=== PATIENT | male | born 1945 | race Caucasian/White ===

== ENCOUNTER 2020-06-10 14:21 | Inpatient (IN) | payer MEDICARE, OTHER ==
[~2020-06-10] VITALS: Ht 165.1 cm; Wt 108.9 kg
--- NOTE | 2020-06-10 14:35 | NUR ---
CHEST PAIN, BB FRIEND TO ER, PRESSURE LIKE 8/10, RADIATES TO THE LEFT ARM; C/O EPIGASTRIC PAIN WELL ON EXAM, OBESE. PATIENT A/OX4, BREATHING EVEN AND UNLABORED, NO SOB NOTED.
[2020-06-10 14:44] LABS: BASOPHILS # (AUTO) 0.1 /CMM (0.0-0.2); EOSINOPHILS % (AUTO) 1.4 % (0.0-6.0); HEMATOCRIT 40 % (39-51); HEMOGLOBIN 12.7 g/dL (13.5-17.5); LYMPHOCYTES # (AUTO) 1.3 /CMM (0.8-4.8); LYMPHOCYTES % (AUTO) 23.5 % (20.0-44.0); MEAN CORPUSCULAR HGB CONC 32 g/dl (31.0-36.0); MEAN CORPUSCULAR VOLUME 82 fL (80-96); MONOCYTES # (AUTO) 0.4 /CMM (0.1-1.30); MONOCYTES % (AUTO) 6.9 % (2.0-12.0); NEUTROPHILS # (AUTO) 3.6 /CMM (1.8-8.9); NEUTROPHILS % (AUTO) 67.2 % (43.0-81.0); PLATELET COUNT (AUTO) 95 /CMM (150-450); RED BLOOD CELL COUNT(AUTO) 4.88 MIL/uL (4.5-6.0); WHITE BLOOD COUNT (AUTO) 5.4 K/uL (4.3-11.0)
[2020-06-10 14:57] LABS: CALCIUM, SERUM 8.6 mg/dL (8.5-10.1); CARBON DIOXIDE 25 mmol/L (21-32); CHLORIDE 101 mmol/L (98-107); CREATININE 1.3 mg/dL (0.6-1.3); GLUCOSE 141 mg/dL (74-106); POTASSIUM 4.2 mmol/L (3.5-5.1); SODIUM SERUM 137 mmol/L (136-145); UREA NITROGEN, BLOOD 22 mg/dL (7-18)
[2020-06-10] MEDS ORDERED: NITROGLYCERIN 0.4 MG/TAB BOTTLE SL ONE (15:00)
[2020-06-10] MEDS ORDERED: ASPIRIN 325 MG TABLET PO ONE (15:00)
[2020-06-10] MEDS ORDERED: ASPIRIN 325 MG TABLET ONE (15:01)
[2020-06-10] MEDS ORDERED: NITROGLYCERIN 0.4 MG/TAB BOTTLE ONE (15:01)
[2020-06-10 15:48] LABS: EOSINOPHILS % (MANUAL) 2 % (0-4); LYMPHOCYTES % (MANUAL) 10 % (16-48); MONOCYTES % (MANUAL) 13 % (0-11.0); NEUTROPHILS % (MANUAL) 75 (42-76)
[2020-06-10] MEDS ORDERED: MAGN500C16 PO (15:57)
[2020-06-10] MEDS ORDERED: METF-867 PO (15:57)
[2020-06-10] MEDS ORDERED: SEMA0.25 SQ (15:57)
[2020-06-10] MEDS ORDERED: DOXA4TAB19 PO (15:57)
[2020-06-10] MEDS ORDERED: SUCR1ORA4 PO (15:57)
[2020-06-10] MEDS ORDERED: NEBI10TA2 PO (15:57)
[2020-06-10] MEDS ORDERED: AZIL40TA PO (15:57)
[2020-06-10] MEDS ORDERED: SITA100T PO (15:57)
--- NOTE | 2020-06-10 16:00 | NUR ---
PATIENT LAUGHING AND TALKING TO HIS FRIEND. NO DISTRESS NOTED. DENIES CHEST PAIN.
[2020-06-10] MEDS ORDERED: Z GUARD REMEDY 2 OZ OINT TP PRN (16:30)
[2020-06-10] MEDS ORDERED: ACETAMINOPHEN 325 MG TABLET PO PRN (16:30)
[2020-06-10] MEDS ORDERED: *INSULIN REGULAR(HUMULIN R)HUM 100 UNIT/ML VIAL SQ PRN (16:30)
[2020-06-10] MEDS ORDERED: MAGNESIUM HYDROXIDE 30 ML UDC PO PRN (16:30)
[2020-06-10] MEDS ORDERED: MAG HYDROX/AL HYDROX/SIMETH 30 ML UDC PO PRN (16:30)
[2020-06-10] MEDS ORDERED: ZOLPIDEM TARTRATE 5 MG TABLET PO PRN (16:30)
[2020-06-10] MEDS ORDERED: ONDANSETRON HCL/PF 4 MG/2 ML VIAL IVP PRN (16:30)
[2020-06-10] MEDS ORDERED: DEXTROSE 50%-WATER 50 ML DISP.SYRIN IV PRN (16:30)
[2020-06-10] MEDS ORDERED: INSULIN REGULAR, HUMAN 100 UNIT/ML 3 ML VIAL SQ PRN (16:30)
[2020-06-10] MEDS: DOXAZOSIN MESYLATE (4 MG) 4 MG TABLET PO SCH ×2 (17:00→19:50)
--- NOTE | 2020-06-10 17:05 | NUR ---
BED ASSIGN 325-1
--- NOTE | 2020-06-10 17:22 | NUR ---
ATTEMPTED TO GIVE REPORT, NURSE IS WITH ANOTHER PATIENT. WILL CALL BACK.
--- NOTE | 2020-06-10 17:55 | NUR ---
REPORT GIVEN TO LESA SMITH OF TELE UNIT
--- NOTE | 2020-06-10 18:10 | NUR ---
PATIENT HAS RIVERO (66) $20 DOLLAR BILLS A TOTAL OF $1240. WILL KEEP AT THE [facility] [employer].
--- NOTE | 2020-06-10 18:39 | NUR ---
PATIENT TRANSFERRED TO ROOM 325-1 VIA ACLS PROTOCOL. PATIENT IN STABLE CONDITION. A/OX4. NO DISTRESS NOTED.
[2020-06-10] MEDS ORDERED: MORPHINE SULFATE INJ 2 MG/ML DISP.SYRIN IVP ONE (19:30)
--- NOTE | 2020-06-10 19:36 | NUR ---
RN NOTES RECEIVED PT. AWAKE, COMPLAINING OF CHEST PAIN- PUT 2L OF OXYGEN AND MORPHINE 1 MG IV GIVEN S ORDERED, V/S STABLE, PT NEEDS TO BE ADMITTED. , SR ON TELE MONITOR HR-65, A/OX4, BAHRAINI SPEAKING, MAKEPT COMFORTABLE, CALL LIGHT WITHIN REACH, [id number], CONTINUE TO MONITOR
[2020-06-10 20:00] VITALS: BP 154/76
--- NOTE | 2020-06-10 20:45 | NUR ---
RN NOTES PT IS NON COMPLIANT , CALLED PT'S DAUGHTER MERA AND EXPLAINED TO HIS DAUGHTER THAT HE'S FATHER IS NON COMPLIANT AND IF SHE CAN TALK TO HIS FATHER, DAUGHTER STATED THAT HE'S FATHER IS REALLY HARD HEADED AND WILL GOT ANXIOUS ON SMALL THINGS ., SHE SAID THAT SHE ALREADY TALKED TO HIS FATHER EARLIER AND LET JUST WAIT FOR HIM TO CALM DOWN FIRST BECAUSE SHE'S NOT GOING TO LISTEN TO HER WELL. . DAUGHTER STATED " I KNOW MY FATHER HE'S HARD HEADED"
[2020-06-10] MEDS: METOPROLOL TARTRATE 50 MG TABLET PO SCH (21:00)
[2020-06-10] MEDS: BLOOD SUGAR DIAGNOSTIC 1 EACH STRIP VI SCH (21:12)
[2020-06-11] VITALS: BP 139/70
[2020-06-11 04:00] VITALS: BP 141/71
[2020-06-11] MEDS: HYDROCODONE/APAP 5/325MG TABLET PO PRN ×2 (06:08→10:53)
--- NOTE | 2020-06-11 06:08 | NUR ---
RN NOTES COMPLAINED OF BACK PAIN- NORCO 5/325 MG PO GIVEN ORDERED, V/S STABLE
--- NOTE | 2020-06-11 06:19 | NUR ---
RN NOTES BLOOD SUGAR- 222, PT. REFUSED INSULIN COVERAGE
--- NOTE | 2020-06-11 06:40 | NUR ---
RN NOTES AWAKE, NO SOB, MORNING CARE RENDERED, CALL LIGHT WITHIN REACH, [id number], PT. NEEDS ATTENDED
[2020-06-11] MEDS: BLOOD SUGAR DIAGNOSTIC 1 EACH STRIP VI SCH (06:41)
[2020-06-11 07:08] LABS: BASOPHILS % (AUTO) 0.4 % (0.0-2.0); EOSINOPHILS % (AUTO) 2.9 % (0.0-6.0); HEMATOCRIT 40 % (39-51); HEMOGLOBIN 12.5 g/dL (13.5-17.5); LYMPHOCYTES # (AUTO) 1.2 /CMM (0.8-4.8); LYMPHOCYTES % (AUTO) 28.1 % (20.0-44.0); MEAN CORPUSCULAR HGB CONC 32 g/dl (31.0-36.0); MEAN CORPUSCULAR VOLUME 81 fL (80-96); MONOCYTES # (AUTO) 0.3 /CMM (0.1-1.30); MONOCYTES % (AUTO) 7.1 % (2.0-12.0); NEUTROPHILS # (AUTO) 2.6 /CMM (1.8-8.9); NEUTROPHILS % (AUTO) 61.5 % (43.0-81.0); PLATELET COUNT (AUTO) 85 /CMM (150-450); RED BLOOD CELL COUNT(AUTO) 4.89 MIL/uL (4.5-6.0); WHITE BLOOD COUNT (AUTO) 4.1 K/uL (4.3-11.0)
[2020-06-11 07:55] VITALS: BP 119/61
--- NOTE | 2020-06-11 08:00 | NUR ---
RN OPENING NOTE PT AWAKE IN BED. A/O X3 AND ABLE TO UNDERSTAND UKRAIN[place]. ABLE TO MAKE NEEDS KNOWN TO NURSES. CURRENTLY ON RA. NO SOB OR RESPIRATORY DISTRESS PRESENT. SINUS RHYTHM ON EXTERNAL MONITOR. AMBULATORY. ABLE TO DO TOILETING. SKIN IS INTACT. HL PRESENT IN R HAND, 22G. SAFETY MEASURES IN PLACE. SIDE RAILS RAISED. BED LOWERED. CALL LIGHT WITHIN REACH. WILL CONTINUE TO MONITOR.
[2020-06-11 08:57] LABS: B-TYPE NATRIURETIC PEPTIDE 12 PG/ML (0-125); CALCIUM, SERUM 8.7 mg/dL (8.5-10.1); CARBON DIOXIDE 25 mmol/L (21-32); CHLORIDE 104 mmol/L (98-107); CHOLESTEROL 151 mg/dL (<200); CREATININE 1.4 mg/dL (0.6-1.3); GLUCOSE 203 mg/dL (74-106); HDL CHOLESTEROL 33 mg/dL (40-60); LDL 77 mg/dL (0-99); MAGNESIUM 2.5 mg/dL (1.8-2.4); PHOSPHORUS 3.4 mg/dL (2.5-4.9); SODIUM SERUM 141 mmol/L (136-145); TRIGLYCERIDES 323 mg/dL (30-150); UREA NITROGEN, BLOOD 23 mg/dL (7-18)
[2020-06-11] MEDS ORDERED: SUCRALFATE 1 G TABLET PO SCH (09:00)
[2020-06-11] MEDS: METOPROLOL TARTRATE 50 MG TABLET PO SCH (09:00)
[2020-06-11] MEDS: DOXAZOSIN MESYLATE (4 MG) 4 MG TABLET PO SCH (09:00)
[2020-06-11] MEDS ORDERED: LOSARTAN POTASSIUM 50 MG TABLET PO SCH (09:00)
[2020-06-11] MEDS ORDERED: ASPIRIN 81 MG TAB.CHEW PO SCH (09:00)
--- NOTE | 2020-06-11 09:40 | NUR ---
Pt refused CTA of the heart. Nurse was informed and stated he would notify DR Au.
[2020-06-11 12:15] VITALS: BP 164/73
--- NOTE | 2020-06-11 12:45 | NUR ---
RN NOTE PT LEFT AMA. V/S STABLE. EDUCATION REFUSED. HL REMOVED. ID BAND REMOVED. LEFT HOME VIA PRIVATE CAR ACCOMPANIED BY THE DAUGHTER.
== END 2020-06-11 12:30 | disposition left against medical advice (07) | DRG 302 ==
LOC: ER 14:24 → TELE 17:18 → MED 06-11 11:53
PROVIDERS: ADMIT Nurse Practitioner Acute Care; ATTEND Nurse Practitioner Acute Care
DX: I25.10 Atherosclerotic heart disease of native coronary artery without angina pectoris (principal); N17.0 Acute kidney failure with tubular necrosis; I10 Essential (primary) hypertension; E11.9 Type 2 diabetes mellitus without complications; R79.89 Other specified abnormal findings of blood chemistry; E78.5 Hyperlipidemia, unspecified; K29.70 Gastritis, unspecified, without bleeding; R60.0 Localized edema; E66.9 Obesity, unspecified; Z68.39 Body mass index [BMI] 39.0-39.9, adult; Z95.5 Presence of coronary angioplasty implant and graft; Z79.899 Other long term (current) drug therapy; Z79.84 Long term (current) use of oral hypoglycemic drugs; F17.200 Nicotine dependence, unspecified, uncomplicated; N40.0 Benign prostatic hyperplasia without lower urinary tract symptoms; N13.9 Obstructive and reflux uropathy, unspecified
CPT/HCPCS: 36415; 71045-TC; 80048-TC; 80061-TC; 82962-TC; 83735-TC; 83880; 84100-TC; 84484-TC; 85025-TC; 85378-TC; 87081-TC; 93970-TC; C9803; G0378; J1815; J2270